=== PATIENT | female | born 1945 | race Caucasian/White ===

== ENCOUNTER → 2016-10-21 | Day surgery (SDC) | payer MEDICARE, BC, OTHER ==
[~2016-10-21] VITALS: Ht 170.2 cm; Wt 70.3 kg
[~2016-10-21] MED LIST: ASPI1TAB PO; ATOR1TAB21 PO; BACITRACIN PWD 50,000 UNITS VIAL As Ordered ONE; BACITRACIN PWD 50,000 UNITS VIAL IR ONE; BUPIVACAINE HCL 0.5% 30 ML VIAL As Ordered ONE; BUPIVACAINE HCL 0.5% 30 ML VIAL SC ONE; FISH5CAP PO; LIDOCAINE 2% INJ 100 MG/5 ML SDV (FOR ANES.) As Ordered ONE; LIDOCAINE 2% MDV 20 ML VIAL As Ordered ONE; LIDOCAINE 2% MDV 20 ML VIAL SC ONE; LR 1,000 ML IV SCH; MIDAZOLAM INJ 2 MG/2 ML VIAL (J2250) As Ordered ONE; NEOSPORIN GU IRRIG 20 ML VIAL As Ordered ONE; NEOSPORIN GU IRRIG 20 ML VIAL IR ONE; PLAV75TA38 PO; PROPOFOL 200 MG/20 ML VIAL As Ordered ONE; VANCOMYCIN HCL 1,000 MG, VIAL MATE ADAPTER 1 EACH in D5W 250 ML IV ONE; dexameTHASONE 4 MG/ML 1ML VIAL (J1100) As Ordered ONE; dexameTHASONE 4 MG/ML 1ML VIAL (J1100) XX ONE; fentaNYL 100 MCG/2 ML INJECTION (J3010) As Ordered ONE
--- NOTE | 2016-10-21 12:03 | REP ---
RIGHT FOOT THREE VIEWS: 10/21/2016. Clinical history: Postoperative. No prior study. Findings: Osteotomy and bunionectomy of the first metatarsal with a single screw transfixing the bone fragments. There has been kelotomy of the distal head of the proximal phalanx second toe with fusion screw across the joint into the middle and proximal phalanx. No other acute finding. Signed by Nba Marcum MD 10/21/2016 04:43 P
[2016-10-21 12:37] VITALS: BP 144/73
--- NOTE | 2016-10-21 14:16 | RO ---
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 Hammertoe deformity second toe right foot. POSTPROCEDURE DIAGNOSIS: Hallux valgus and metatarsus primus varus deformity right foot. Hammertoe deformity second toe right foot. PROCEDURE: 1. Bob bunionectomy with internal screw fixation 3.0 mm x 24 mm x 1 right foot. 2. Proximal interphalangeal joint fusion with DigiFuse 2.0 x 10 degree angled second toe right foot. SURGEON: Mick Grande DPM [employer] CIRCULATION DEPARTMENT: None. ANESTHESIA: Local, monitored anesthesia care (MAC). IRRIGATION: Dilute bacitracin, neomycin and polymyxin B solution. HARDWARE UTILIZED: Luo DartFire 3.0 x 24 mm headed compression screw and a DigiFuse 2.0 x 10 degrees angled screw. HEMOSTASIS: Ankle tourniquet at 200 mmHg for 46 minutes. DESCRIPTION OF PROCEDURE: On 10/21/2016, this 70-year-old white female was taken from her hospital room to the operating room and placed on the operating room table in a supine position. Following the induction of IV sedation, local and regional anesthesia, the right lower extremity was prepped and draped in the usual aseptic manner. Attention was directed to the patient's right foot where the following procedure was performed. BOB BUNIONECTOMY AND INTERNAL SCREW FIXATION, 3.0 MM X 24 MM X 1, RIGHT FOOT: Attention was directed to the patients right foot where there was noted to be a hallux valgus deformity. At this time, a 6 cm incision was placed over the first metatarsal phalangeal joint medial to the extensor tendon. The incision was deepened through subcutaneous tissues and all coursing venous tributaries were identified, underscored, clamped, cut, ligated, and electrocoagulated as necessary. A linear capsulotomy was then performed in the same plane as the original skin incision. The capsule and periosteal structures were then dissected free in one continuous layer dorsally, medially and laterally, thus creating a capsule and periosteal type envelope. This delivered into view the hypertrophied medial eminence of the first metatarsal which was osteotomized from distal to proximal through and through and extirpated from the wound in toto. Attention was directed into the first metatarsal space where dissection was carried down to the level of the conjoined tendon, which was sharply dissected free from the fibular sesamoid. Attention was directed to the medial surface of the first metatarsal where a V-shaped osteotomy was performed with a long plantar and short dorsal wing. Upon creation of this osteotomy, the capital fragment was transposed 40% of the width of the shaft of the first metatarsal and fixated with a 3.0 x 24 mm cannulated compression screw. The screw did not penetrate the inferior cartilage under direct visualization. The redundant cortical spike was then osteotomized from dorsal to plantar through and through and extirpated from the wound in toto. The medial surface was rasped to a smooth contour with a hand held rasp. The wound was flushed with copious amounts of dilute bacitracin, neomycin and polymyxin B solution. Attention was directed toward closure where the capsular structures were coapted and maintained with #3-0 Vicryl in a simple interrupted type fashion. Subcutaneous tissues were coapted and maintained utilizing #4-0 Monocryl in a simple interrupted type fashion. The skin incision was coapted and maintained utilizing #4-0 Prolene in a simple interrupted and horizontal mattress type fashion. Attention was then directed to the patient's second toe where the following procedure was performed. PROXIMAL INTERPHALANGEAL JOINT FUSION WITH DIGIFUSE 2.0 X 10 DEGREE ANGLED SECOND TOE RIGHT FOOT: Attention was directed to the patient's second toe where there was noted to be a hammertoe deformity. At this time, an incision was placed over the proximal interphalangeal joint extending proximal to the metatarsal phalangeal joint. The incision was deepened through subcutaneous tissues and all coursing venous tributaries were identified, underscored, clamped, cut, ligated and electrocoagulated as necessary. A Z-plasty tendon lengthening was then performed over the extensor tendon over the second toe. The medial and lateral collateral ligaments were dissected from the proximal phalanx and utilizing a power saw an osteotomy was performed through the anatomical neck of the proximal phalanx from dorsal to plantar medial to lateral through and through. The base of the articular cartilage on the middle phalanx was then osteotomized from distal to proximal through and through. Utilizing the standard technique, a 2.0 x 10 degree DigiFuse was placed across the proximal interphalangea joint. Initially, a 2.5 x 10 degree angled screw was tried; however the screw was too tight for the medullary canal and therefore was removed, placing in its place a 2.0 x 10 degree angled which fit the canal well and snug, but did not expand the canal. The fusion site was stable in all three cardinal planes. The wound was flushed with copious amounts of dilute bacitracin, neomycin and polymyxin B solution. Utilizing a #4-0 braided nylon loop suture, a four-stranded core repair in a M shaped fashion was placed across the tendon. The skin was coapted and maintained with #4-0 Prolene in a simple interrupted and horizontal mattress type fashion. Attention was directed towards bandaging where a sterile compressive bandage was applied consisting of Adaptic, 4x4s, 4x4 splints, Lincoln, Kerlix and Coban. The ankle pneumatic tourniquet was rapidly deflated and instantaneous capillary filling time was noted in digits 1-5 of the patients right foot. The patient having apparently tolerated the surgical procedure well was taken from the OR to the recovery room with vital signs stable and the patient afebrile for further monitoring by the anesthesia department. All surgical specimens removed during the operative procedure were sent to pathology for gross and microscopic examination. Postoperative instructions will be given upon discharge.
== END | disposition home or self-care (01) ==
LOC: M SDC 07:35
PROVIDERS: ATTEND Podiatrist
DX: M20.11 Hallux valgus (acquired), right foot (principal); M20.41 Other hammer toe(s) (acquired), right foot; M79.674 Pain in right toe(s); M20.5X1 Other deformities of toe(s) (acquired), right foot; I25.2 Old myocardial infarction; I25.10 Atherosclerotic heart disease of native coronary artery without angina pectoris; E78.4 Other hyperlipidemia; G47.00 Insomnia, unspecified; M35.3 Polymyalgia rheumatica; Z79.82 Long term (current) use of aspirin; Z79.899 Other long term (current) drug therapy; Z88.0 Allergy status to penicillin
CPT/HCPCS: 28285; 28296; 73630; 88300; C1776; J1100; J2250; J3010; J3370

== ENCOUNTER → 2016-11-12 | Outpatient (REF) | payer MEDICARE, OTHER ==
[~2016-11-12] MED LIST changes: -BACITRACIN PWD 50,000 UNITS VIAL As Ordered ONE; -BACITRACIN PWD 50,000 UNITS VIAL IR ONE; -BUPIVACAINE HCL 0.5% 30 ML VIAL As Ordered ONE; -BUPIVACAINE HCL 0.5% 30 ML VIAL SC ONE; -LIDOCAINE 2% INJ 100 MG/5 ML SDV (FOR ANES.) As Ordered ONE; -LIDOCAINE 2% MDV 20 ML VIAL As Ordered ONE; -LIDOCAINE 2% MDV 20 ML VIAL SC ONE; -LR 1,000 ML IV SCH; -MIDAZOLAM INJ 2 MG/2 ML VIAL (J2250) As Ordered ONE; -NEOSPORIN GU IRRIG 20 ML VIAL As Ordered ONE; -NEOSPORIN GU IRRIG 20 ML VIAL IR ONE; -PROPOFOL 200 MG/20 ML VIAL As Ordered ONE; -VANCOMYCIN HCL 1,000 MG, VIAL MATE ADAPTER 1 EACH in D5W 250 ML IV ONE; -dexameTHASONE 4 MG/ML 1ML VIAL (J1100) As Ordered ONE; -dexameTHASONE 4 MG/ML 1ML VIAL (J1100) XX ONE; -fentaNYL 100 MCG/2 ML INJECTION (J3010) As Ordered ONE
== END ==
LOC: M LAB REF 17:13
PROVIDERS: ATTEND Podiatrist
DX: M79.674 Pain in right toe(s) (principal); Z86.718 Personal history of other venous thrombosis and embolism; T84.498A Other mechanical complication of other internal orthopedic devices, implants and grafts, initial encounter